=== PATIENT | female | born 1935 | race Caucasian/White ===

== ENCOUNTER 2017-11-14 22:09 | Inpatient (IN) | payer MEDICARE, BC ==
[~2017-11-14 22:09] MED LIST: ISOVUE-370 76%-LOCM 1 ML ONE
[2017-11-14 22:57] LABS: INR-International Normal Ratio 1.1; PTT 33.4 SEC (22.9-36.1); Prothrombin Time 13.8 SEC (12.0-14.7)
[2017-11-14 22:58] LABS: #Eosinphils 0.1 thou/uL (0.0-0.7); #Lymphocytes 1.6 thou/uL (1.20-3.40); #Monocytes 0.9 thou/uL (0.11-0.59); #Neutrophils 10.7 thou/uL (1.40-6.50); %Basophils 0.1 % (0.0-1.0); %Lymphocytes 11.6 % (21.0-51.0); %Neutrophils 80.3 % (42.0-75.0); Hemoglobin 13.1 g/dL (12.0-16.0); Mean Corpuscular HGB CONC 33.3 g/dL (32.0-36.0); Mean Corpuscular Hemoglobin 32.7 pg (27.0-31.0); Mean Corpuscular Volume 98.1 fl (81.0-99.0); Platelet Count 225 thou/uL (130-400); RBC Distribution Width 11.3 % (11.5-14.5); Red Blood Cell (RBC) Count 4.02 mill/uL (4.20-5.40); White Blood Cell (WBC) Count 13.4 thou/uL (4.8-10.8)
[2017-11-14 23:12] LABS: ALT (SGPT) 15 U/L (8-55); AST (SGOT) 15 U/L (5-34); Albumin 3.9 g/dL (3.4-4.8); Alkaline Phosphatase 67 U/L (40-150); Anion Gap 10 mmol/L (10-20); BUN (Urea Nitrogen) 20 mg/dL (9.8-20.1); Bilirubin, Total 0.5 mg/dL (0.2-1.2); Calc. Creatinine Clearance 0 mL/min (70-130); Calcium 9.9 mg/dL (7.8-10.44); Carbon Dioxide 24 mmol/L (23-31); Chloride 106 mmol/L (98-107); Estimated GFR-MDRD 76; Globulin 2.7 g/dL (2.4-3.5); Glucose 101 mg/dL (83-110); Magnesium 1.8 mg/dL (1.6-2.6); Potassium 4.2 mmol/L (3.5-5.1); Protein, Total 6.6 g/dL (6.0-8.3); Sodium 136 mmol/L (136-145)
[2017-11-15] MEDS ORDERED: metroNIDAZOLE 500 MG/100 ML BAG ONE (00:16)
--- NOTE | 2017-11-15 00:16 | CT ---
CT ABDOMEN AND PELVIS WITH IV CONTRAST 11/14/17 HISTORY: Rectal bleeding that started this morning. Intermittent diarrhea for the past one to two weeks. Patie nt reports dizziness and lightheadedness and left sided abdominal pain starting today. Patient takes Eliquis. COMPARISON: None available. FINDINGS: There is mild dependent bibasilar atelectasis. The heart is mildly enlarged. There is a hiatal hernia with the fundus of the stomach above the level of the hemidiaphragms. Calcified granulomata are seen in the liver and spleen. The pancreas, bilateral adrenal glands, kidneys, and urinary bladder demonstrate a normal CT appearan ce. The uterus is either small or surgically absent. The appendix is visualized and normal in caliber. There is a small to moderate amount of retained fecal material seen extending from the cecum to the l evel of the splenic flexure. There is circumferential wall thickening involving the sigmoid colon. There are colonic diverticula a lso seen in this region with pericolonic inflammatory changes. Findings could be related to diverticu litis, but given longer segment of involvement of colonic wall thickening, findings could also be att ributable to colitis related to other infectious or inflammatory etiology. No free intraperitoneal ga s is seen and there is no fluid collection seen to suggest an abscess. There are prominent degenerative changes in the spine with right convexed rotoscoliosis of the thorac olumbar spine. IMPRESSION: 1. Bowel wall thickening involving the sigmoid colon with pericolonic inflammatory changes. Ther e is evidence of colonic diverticulosis and findings are probably attributable to diverticulitis; alt scott, colitis related to either infectious or inflammatory etiology is a consideration. 2. No CT evidence of appendicitis. 3. Hiatal hernia. 4. Moderate amount of retained fecal material in the colon suggesting element of constipation. 5. Followup evaluation is recommended after treatment of presumed diverticulitis/colitis. POS: [facility]
[2017-11-15] MEDS ORDERED: Morphine 5 MG/ML SYRINGE SLOW IVP PRN (02:25)
[2017-11-15] MEDS ORDERED: Sodium Chloride 0.45% 1,000 ML IV SCH (02:30)
[2017-11-15] MEDS ORDERED: Acetaminophen 325 MG TAB PO PRN (05:43)
[2017-11-15] MEDS ORDERED: Milk Of Magnesia 30 ML UDCUP PO PRN (05:43)
[2017-11-15] MEDS ORDERED: Ondansetron HCl/PF 4 MG/2 ML Vial IVP PRN (05:43)
[2017-11-15] MEDS ORDERED: Guaifenesin DM 100-10/5 ML UDCUP PO PRN (05:43)
[2017-11-15] MEDS: Sodium Chloride 0.9% 1,000 ML IV SCH (06:20)
[2017-11-15] MEDS: Thyroid 30 MG TAB PO SCH (06:21)
[2017-11-15] MEDS: metroNIDAZOLE 500 MG in Premix Bag 1 BAG IVPB SCH ×3 (06:21→20:56)
[2017-11-15] MEDS: Acetaminophen 325 MG TAB PO PRN ×3 (06:47→17:53)
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
[2017-11-15] MEDS: Lisinopril 5 MG TAB PO SCH (08:23)
[2017-11-15] MEDS: Docusate 100 MG CAP PO SCH ×2 (08:24→20:51)
[2017-11-15] MEDS: Famotidine 20 MG TAB PO SCH ×2 (08:24→20:51)
[2017-11-15] MEDS ORDERED: Enoxaparin Sodium 40 MG/0.4 ML SYRINGE SC SCH (09:00)
[2017-11-15] MEDS ORDERED: cycloSPORINE 0.05% Ophthalmic Droperette EA EYE SCH (11:30)
[2017-11-15] MEDS: FLUOROMETHOLONE 0.1% FS SCH ×3 (11:46→20:55)
[2017-11-15] MEDS: OPTH FS SCH ×3 (11:46→20:55)
--- NOTE | 2017-11-15 12:31 | PDOC.PN ---
- Subjective Encounter Start Date: 11/15/17 Encounter Start Time: 12:30 Subjective: c/o back pain,eye pain and dryness -: no abd pain,nausea or vomiting - Objective MAR Reviewed: Yes Vital Signs & Weight: Vital Signs (12 hours) Temp Pulse Resp Pulse Ox 11/15/17 10:24 97.7 F 67 16 93 L 11/15/17 08:15 97.9 F 69 16 94 L Result Diagrams: 11/14/17 22:35 11/14/17 22:35 Phys Exam - Physical Examination Constitutional: NAD HEENT: PERRLA, moist MMs, sclera anicteric, oral pharynx no lesions Neck: no nodes, no JVD, supple, full ROM Respiratory: no wheezing, no rales, no rhonchi, clear to auscultation bilateral Cardiovascular: RRR, no significant murmur Gastrointestinal: soft, non-tender, no distention, positive bowel sounds Musculoskeletal: no edema, pulses present Neurological: non-focal, normal sensation, moves all 4 limbs Psychiatric: normal affect, A&O x 3 Skin: no rash Dx/Plan (1) Diverticulitis Code(s): K57.92 - DVTRCLI OF INTEST, PART UNSP, W/O PERF OR ABSCESS W/O BLEED Status: Acute (2) A-fib Code(s): I48.91 - UNSPECIFIED ATRIAL FIBRILLATION Status: Chronic (3) HTN (hypertension) Code(s): I10 - ESSENTIAL (PRIMARY) HYPERTENSION Status: Chronic (4) Chronic anticoagulation Code(s): 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 Clear liquid diet -: restart Eye drops.add tylenol prn -: am labs.IVF -: hemodynamically stable. * . Review of Systems - Review of Systems Constitutional: negative: fever, chills, sweats, weakness, malaise, other Eyes: negative: Pain, Vision Change, Conjunctivae Inflammation, Eyelid Inflammation, Redness, Other ENT: negative: Ear Pain, Ear Discharge, Nose Pain, Nose Discharge, Nose Congestion, Mouth Pain, Mouth Swelling, Throat Pain, Throat Swelling, Other Respiratory: negative: Cough, Dry, Shortness of Breath, Hemoptysis, SOB with Excertion, Pleuritic Pain, Sputum, Wheezing Cardiovascular: negative: chest pain, palpitations, orthopnea, paroxysmal nocturnal dyspnea, edema, light headedness, other Gastrointestinal: negative: Nausea, Vomiting, Abdominal Pain, Diarrhea, Constipation, Melena, Hematochezia, Other Genitourinary: negative: Dysuria, Frequency, Incontinence, Hematuria, Retention , Other Musculoskeletal: negative: Neck Pain, Shoulder Pain, Arm Pain, Back Pain, Hand Pain, Leg Pain, Foot Pain, Other Skin: negative: Rash, Lesions, Mando, Bruising, Other Neurological: negative: Weakness, Numbness, Incoordination, Change in Speech, Confusion, Seizures, Other - Medications/Allergies Allergies/Adverse Reactions: Allergies Allergy/AdvReac Type Severity Reaction Status Date / Time bacitracin Allergy Verified 11/15/17 02:30 [From Neosporin ([id number])] codeine Allergy Verified 11/15/17 02:30 neomycin Allergy Verified 11/15/17 02:30 [From Neosporin ([id number])] Penicillins Allergy Verified 11/15/17 02:30 polymyxin B Allergy Verified 11/15/17 02:30 [From Neosporin ([id number])] simvastatin [From Zocor] Allergy Verified 11/15/17 02:30 Sulfa (Sulfonamide Allergy Verified 11/15/17 02:30 Antibiotics) Medications: Current Medications Acetaminophen (Tylenol) 650 mg PO Q4H PRN PRN Reason: Headache/Fever or Pain Last Admin: 11/15/17 11:26 Dose: 650 mg Acetaminophen (Tylenol) 650 mg PO Q4H PRN PRN Reason: Pain 1-3 Amlodipine Besylate (Norvasc) 10 mg PO [facility] Cyclosporine (Restasis) 0 ml EA EYE BID [facility] Cyclosporine (Restasis) 0 ml EA EYE 1130 [facility] Stop: 11/15/17 13:30 Last Admin: 11/15/17 11:46 Dose: 0.4 ml Docusate Sodium (Colace) 100 mg PO BID [facility] Last Admin: 11/15/17 08:24 Dose: 100 mg Famotidine (Pepcid) 20 mg PO BID [facility] Last Admin: 11/15/17 08:24 Dose: 20 mg Galantamine Hydrobromide (Razadyne) 8 mg PO BID [facility] Last Admin: 11/15/17 08:24 Dose: 8 mg Guaifenesin/Dextromethorphan (Robitussin Dm) 15 ml PO Q4H PRN PRN Reason: Cough Ciprofloxacin/Dextrose 400 mg/ (Device) 200 mls @ 200 mls/hr IVPB Q12HR [facility] Last Admin: 11/15/17 08:25 Dose: 200 mls Metronidazole 500 mg/ Device 100 mls @ 100 mls/hr IVPB Q8HR [facility] Last Admin: 11/15/17 06:21 Dose: 100 mls Sodium Chloride (Normal Saline 0.9%) 1,000 mls @ 50 mls/hr IV .Q20H [facility] Last Admin: 11/15/17 06:20 Dose: 1,000 mls Lisinopril (Zestril) 5 mg PO QAM [facility] Last Admin: 11/15/17 08:23 Dose: 5 mg Magnesium Hydroxide (Milk Of Magnesium) 30 ml PO DAILYPRN PRN PRN Reason: Constipation Morphine Sulfate (Morphine) 2 mg SLOW IVP Q4H PRN PRN Reason: Chest Pain/BP Elevations Fluorometholone (Fml () 0.1 % Opth Drops) 0 each FS BID [facility] Fluorometholone (Fml () 0.1 % Opth Drops) 0 each FS 1130 [facility] Stop: 11/15/17 13:30 Last Admin: 11/15/17 11:46 Dose: 1 each Ondansetron HCl (Zofran) 4 mg IVP Q6H PRN PRN Reason: Nausea/Vomiting Thyroid ([place] Thyroid) 30 mg PO 0600 [facility] Last Admin: 11/15/17 06:21 Dose: 30 mg
[2017-11-15] MEDS: Amlodipine 10 MG TAB PO SCH (20:50)
[2017-11-15] MEDS: cycloSPORINE 0.05% Ophthalmic Droperette EA EYE SCH (20:55)
--- NOTE | 2017-11-15 23:56 | CON ---
DATE OF CONSULTATION: 11/15/2017 REASON FOR CONSULTATION: Rectal bleeding, possible diverticulitis, possible colitis. HISTORY OF PRESENT ILLNESS: Ms. Minor is a pleasant 81-year-old female, who is previously gotten h healthcare at [facility] and then more recently in [facility]. She came to the emergency room yesterday with severe left lower quadrant pain and was admitted with a mild leukocytosis and a CAT sc an showing some inflammation in the sigmoid colon and was felt that she might have diverticular disea se. I talked with her. She has had a history of polyps in the past, maybe her last colonoscopy was about 10 years ago although her daughter thinks it was 5 years ago and [facility] [place] and she did fine with that. She after not have any further colonoscopies due to her advancing age. After some time, she has had problems with her bowels alternating loose and constipated at one point in time, sh ghazal states when she was in her 70s, she had to go to [place] and have what sounds like some biofeedback training for fecal incontinence, which worked pretty well for her, although she lapsed on the exerci ses associated with this when her was dying and really never went back to it. She tends to t kam some antidiarrheals to keep her bowels tight, so that she does not have accidents. She can get u p and get around and do things. In the past couple of weeks, she has been more constipated and was h aving liquid stools. Her daughter thought maybe she had an impaction and liquid stools coming around . Ultimately, she began to have some left lower quadrant pain over the past 3-4 days and she was in the process of moving and her daughter is in the process of moving, she was trying to get through wit hout going to the doctor's office. Ultimately, though it got bad enough that was causing severe pain and then yesterday she passed little bit of blood after a hard bowel movement. She came in to the e mergency room and she was noted to have a mild leukocytosis and a CAT scan showing quite a bit of sto ol in the right colon, paucity of stool in the rectum and sigmoid descending, but thickening circumfe rential pattern in the sigmoid colon consistent with either colitis or diverticulitis. She has been started on antibiotics and is feeling better. She is tolerating liquids at this time. She had no fu rther bleeding since admission. She denies any prior episodes of diverticulitis or colitis. She denies any change in medications or recent antibiotics. PAST MEDICAL AND SURGICAL HISTORY: Severe spinal stenosis, chronic back pain, atrial fibrillation, h istory of [place], reflux, osteoarthritis, hysterectomy, tonsillectomy, hypothyroidism, bladder suspension , cataract surgery, right knee surgery. CURRENT MEDICATIONS: Galantamine extended release twice daily, lisinopril 5 mg daily, [place] Thyroid 30 mg daily, Eliquis 2.5 mg twice daily, Norvasc 10 mg a day, Tylenol p.r.n. Here, she has received some Colace stool softener, Tylenol, Norvasc, Cipro 400 mg q.12 hours, Restasis eyedrops, Colace 100 mg b.i.d., Pepcid 20 mg b.i.d., Razadyne 8 mg b.i.d., Robitussin p.r.n., Zestril 5 mg daily, Flagyl 500 mg q.8 hours, morphine p.r.n., fluorometholone eyedrops and Zofran, normal saline at 50 an hour. ALLERGIES: BACTRIM, CODEINE, NEOMYCIN, PENICILLIN, POLYMYXIN, SIMVASTATIN and SULFA. REVIEW OF SYSTEMS: Negative for dysphagia or odynophagia. Negative for hematemesis or melena. Nega tive for dysuria, frequency, or urgency. She may have a little bit of fever yesterday. SOCIAL HISTORY: She does not smoke, does not drink or use drugs. Her daughter is here at the [facility]. She has been living at some assisted living center here locally. Daughter lives out in the [facility] about an hour away. PHYSICAL EXAMINATION: VITAL SIGNS: Temperature is 97.3, pulse 67, blood pressure 109/56. LUNGS: Clear. HEART: Regular rate and rhythm without clicks or murmurs. ABDOMEN: Scaphoid. She has got some tenderness in left lower quadrant without rebound or guarding. RECTAL: Noted some impaction, no blood. There was yellow stool there. EXTREMITIES: Reveal no clubbing, cyanosis, or edema. SKIN: Atrophic over the shins. She has no overt edema. NEUROLOGIC: She is alert and oriented. Pretty good sense of humor and laughs appropriately, comment s made by her daughter. LABORATORY DATA: White count 6.9 on 10/29/2017, yesterday when she was admitted it was 13.4, hemoglo bin 13.1, platelet count was 225. INR 1.1. Comp met profile was normal. TSH was 0.85 on 10/29/2017 , vitamin B12 is 801. Lipase was 11 on admission. Troponins were negative. IMAGING: CT scan, I have reviewed the actual films. Radiologist felt there was bowel wall thickenin g more in the sigmoid colon, pericolonic inflammatory changes. I agree with these findings likely re lated to diverticulitis. There was a hiatal hernia with fair amount of stomach above the diaphragm, moderate retained fecal matter in the right colon, which I think is fairly significant. ASSESSMENT AND PLAN: 1. Ms. Minor likely has diverticulitis. She did not have quite amount of bleeding or characterist ics of bleeding, and crampy pain and diarrhea that one usually encounters with ischemic colitis. At present, she is on appropriate antibiotics. Keep her on a full liquid diet at this time. She seems to be improved when she came in. We will monitor her labs. If she has further bleeding, we can reev aluate this, but suspect this was either related to the inflammation or possibly even hemorrhoidal as she is quite a bit of hard stools recently. 2. Chronic problems with constipation, probably induced by medicine she takes for fear of fecal inco ntinence. Presently, she has got quite a bit of stool in the right colon. I agree with Colace stool softeners daily. Tomorrow, we will start on little bit of MiraLax as well. She is inclined not to have endoscopy due to her advanced age and other issues and we will definitely try to hold off on jose martin t. I do not see any reason we need to pursue that unless she was not improving or had increased blee ding. We will follow along.
[2017-11-16] MEDS: Acetaminophen 500 MG TAB PO PRN (01:48)
[2017-11-16] MEDS: Sodium Chloride 0.9% 1,000 ML IV SCH ×2 (01:52→20:58)
[2017-11-16] MEDS: metroNIDAZOLE 500 MG in Premix Bag 1 BAG IVPB SCH ×3 (04:07→20:53)
[2017-11-16] MEDS: Thyroid 30 MG TAB PO SCH (04:07)
[2017-11-16 05:13] LABS: #Eosinphils 0.2 thou/uL (0.0-0.7); #Lymphocytes 2.4 thou/uL (1.20-3.40); #Monocytes 0.8 thou/uL (0.11-0.59); #Neutrophils 7.2 thou/uL (1.40-6.50); %Basophils 0.1 % (0.0-1.0); %Eosinophils 2.1 % (0.0-10.0); %Lymphocytes 22.2 % (21.0-51.0); %Monocytes 7.7 % (0.0-10.0); %Neutrophils 67.9 % (42.0-75.0); Hemoglobin 11.6 g/dL (12.0-16.0); Mean Corpuscular HGB CONC 33.3 g/dL (32.0-36.0); Mean Corpuscular Hemoglobin 33.2 pg (27.0-31.0); Mean Corpuscular Volume 99.5 fl (81.0-99.0); Mean Platelet Volume 7.5 fL (7.4-10.4); Platelet Count 196 thou/uL (130-400); RBC Distribution Width 11.4 % (11.5-14.5); White Blood Cell (WBC) Count 10.6 thou/uL (4.8-10.8)
[2017-11-16 05:25] LABS: Anion Gap 11 mmol/L (10-20); BUN (Urea Nitrogen) 10 mg/dL (9.8-20.1); Calc. Creatinine Clearance 71 mL/min (70-130); Calcium 9.3 mg/dL (7.8-10.44); Carbon Dioxide 23 mmol/L (23-31); Chloride 106 mmol/L (98-107); Estimated GFR-MDRD 81; Glucose 100 mg/dL (83-110); Potassium 3.8 mmol/L (3.5-5.1); Sodium 136 mmol/L (136-145)
[2017-11-16] MEDS ORDERED: Polyethylene Glycol 3350 17 GM Packet PO SCH (09:00)
[2017-11-16] MEDS: cycloSPORINE 0.05% Ophthalmic Droperette EA EYE SCH ×2 (09:50→20:45)
[2017-11-16] MEDS: Lisinopril 5 MG TAB PO SCH (09:51)
[2017-11-16] MEDS: Docusate 100 MG CAP PO SCH ×2 (09:52→20:44)
[2017-11-16] MEDS: Famotidine 20 MG TAB PO SCH ×2 (09:52→20:44)
[2017-11-16] MEDS: FLUOROMETHOLONE 0.1% FS SCH ×2 (09:58→20:45)
[2017-11-16] MEDS: OPTH FS SCH ×2 (09:58→20:45)
--- NOTE | 2017-11-16 13:27 | PRG ---
DATE OF SERVICE: 11/16/2017 SUBJECTIVE: Ms. Minor states she has not had a bowel movement today and she feels discomfort in th e upper abdomen with laxatives. She had no fever or chills. She is tolerating a liquid diet. PHYSICAL EXAMINATION: VITAL SIGNS: Temperature 97.4, pulse 83, blood pressure 130/65. GENERAL: She is little bit hard of hearing. She is in no distress, alert and oriented. LUNGS: Clear. HEART: Regular rate and rhythm. ABDOMEN: Soft, mildly tender in the left lower quadrant without rebound or guarding. LABORATORY STUDIES: White count today is 10.6, hemoglobin is 11.6, and platelet count is 196. Basic metabolic profile is normal. ASSESSMENT: 1. Diverticulitis, improving clinically. She is on Cipro and Flagyl. 2. Hypertension, controlled. 3. Chronic issues with constipation, alternating diarrhea and occasional fecal incontinence. The CA T scan showing quite a bit of constipation in the right colon and diverticulitis in the sigmoid. 4. Bleeding on admission, this is resolved. RECOMMENDATIONS: We will increase MiraLax to b.i.d. to help with her constipation.
--- NOTE | 2017-11-16 13:55 | PDOC.PN ---
- Subjective Encounter Start Date: 11/16/17 Encounter Start Time: 13:52 Subjective: feels much better.constipated.no fever/chiils - Objective MAR Reviewed: Yes Vital Signs & Weight: Vital Signs (12 hours) Temp Pulse Resp BP BP Pulse Ox 11/16/17 09:51 83 130/65 11/16/17 08:00 97.4 F L 63 20 95 11/16/17 07:00 97.4 F L 63 20 104/54 L 95 I&O: 11/15/17 11/16/17 11/17/17 06:59 06:59 06:59 Intake Total 3840 480 Balance 3840 480 Result Diagrams: 11/16/17 04:34 11/16/17 04:34 Additional Labs: Microbiology 11/14/17 22:35 Stool - Pending Stool Occult Blood (DRISS) - Final Phys Exam - Physical Examination Constitutional: NAD HEENT: PERRLA, moist MMs, sclera anicteric, oral pharynx no lesions Neck: no nodes, no JVD, supple, full ROM Respiratory: no wheezing, no rales, no rhonchi, clear to auscultation bilateral Cardiovascular: RRR, no significant murmur Gastrointestinal: soft, no distention, positive bowel sounds mild tender to palpation Musculoskeletal: no edema, pulses present Neurological: non-focal, normal sensation, moves all 4 limbs Psychiatric: normal affect, A&O x 3 Skin: no rash Dx/Plan (1) Diverticulitis Code(s): K57.92 - DVTRCLI OF INTEST, PART UNSP, W/O PERF OR ABSCESS W/O BLEED Status: Acute (2) A-fib Code(s): I48.91 - UNSPECIFIED ATRIAL FIBRILLATION Status: Chronic Qualifiers: Atrial fibrillation type: paroxysmal Qualified Code(s): I48.0 - Paroxysmal atrial fibrillation (3) HTN (hypertension) Code(s): I10 - ESSENTIAL (PRIMARY) HYPERTENSION Status: Chronic (4) Chronic anticoagulation Code(s): Z79.01 - [facility] (CURRENT) USE OF ANTICOAGULANTS Status: Chronic Comment: eliquis on hold d/t mild rectal bleed - Plan continue antibiotics, out of bed/ambulate, DVT proph w/SCDs Cont Abx,appreciate GI input.cont laxatives/stool softners -: eliquis on hold.restart if no more bleed & H/H stable -: home meds as below. * . Review of Systems - Review of Systems Constitutional: weakness, malaise. negative: fever, chills, sweats, other ENT: negative: Ear Pain, Ear Discharge, Nose Pain, Nose Discharge, Nose Congestion, Mouth Pain, Mouth Swelling, Throat Pain, Throat Swelling, Other Respiratory: negative: Cough, Dry, Shortness of Breath, Hemoptysis, SOB with Excertion, Pleuritic Pain, Sputum, Wheezing Cardiovascular: negative: chest pain, palpitations, orthopnea, paroxysmal nocturnal dyspnea, edema, light headedness, other Gastrointestinal: negative: Nausea, Vomiting, Abdominal Pain, Diarrhea, Constipation, Melena, Hematochezia, Other Genitourinary: negative: Dysuria, Frequency, Incontinence, Hematuria, Retention , Other Musculoskeletal: negative: Neck Pain, Shoulder Pain, Arm Pain, Back Pain, Hand Pain, Leg Pain, Foot Pain, Other Skin: negative: Rash, Lesions, Mando, Bruising, Other Neurological: negative: Weakness, Numbness, Incoordination, Change in Speech, Confusion, Seizures, Other - Medications/Allergies Allergies/Adverse Reactions: Allergies Allergy/AdvReac Type Severity Reaction Status Date / Time bacitracin Allergy Verified 11/15/17 02:30 [From Neosporin ([id number])] codeine Allergy Verified 11/15/17 02:30 neomycin Allergy Verified 11/15/17 02:30 [From Neosporin ([id number])] Penicillins Allergy Verified 11/15/17 02:30 polymyxin B Allergy Verified 11/15/17 02:30 [From Neosporin ([id number])] simvastatin [From Zocor] Allergy Verified 11/15/17 02:30 Sulfa (Sulfonamide Allergy Verified 11/15/17 02:30 Antibiotics) Medications: Current Medications Acetaminophen (Tylenol) 1,000 mg PO Q4H PRN PRN Reason: Headache/Fever or Pain Last Admin: 11/16/17 01:48 Dose: 1,000 mg Amlodipine Besylate (Norvasc) 10 mg PO HS [facility] Last Admin: 11/15/17 20:50 Dose: 10 mg Cyclosporine (Restasis) 0 ml EA EYE BID [facility] Last Admin: 11/16/17 09:50 Dose: 0.4 ml Docusate Sodium (Colace) 100 mg PO BID [facility] Last Admin: 11/16/17 09:52 Dose: 100 mg Famotidine (Pepcid) 20 mg PO BID [facility] Last Admin: 11/16/17 09:52 Dose: 20 mg Galantamine Hydrobromide (Razadyne) 8 mg PO BID [facility] Last Admin: 11/16/17 09:53 Dose: 8 mg Guaifenesin/Dextromethorphan (Robitussin Dm) 15 ml PO Q4H PRN PRN Reason: Cough Ciprofloxacin/Dextrose 400 mg/ (Device) 200 mls @ 200 mls/hr IVPB Q12HR [facility] Last Admin: 11/16/17 09:16 Dose: 200 mls Metronidazole 500 mg/ Device 100 mls @ 100 mls/hr IVPB Q8HR [facility] Last Admin: 11/16/17 04:07 Dose: 100 mls Sodium Chloride (Normal Saline 0.9%) 1,000 mls @ 50 mls/hr IV .Q20H [facility] Last Admin: 11/16/17 01:52 Dose: 1,000 mls Lisinopril (Zestril) 5 mg PO QAM [facility] Last Admin: 11/16/17 09:51 Dose: 5 mg Magnesium Hydroxide (Milk Of Magnesium) 30 ml PO DAILYPRN PRN PRN Reason: Constipation Morphine Sulfate (Morphine) 2 mg SLOW IVP Q4H PRN PRN Reason: Chest Pain/BP Elevations Last Admin: 11/16/17 04:07 Dose: 2 mg Fluorometholone (Fml () 0.1 % Opth Drops) 0 each FS BID [facility] Last Admin: 11/16/17 09:58 Dose: Not Given Ondansetron HCl (Zofran) 4 mg IVP Q6H PRN PRN Reason: Nausea/Vomiting Polyethylene Glycol (Miralax) 17 gm PO BID [facility] Thyroid ([place] Thyroid) 30 mg PO 0600 [facility] Last Admin: 11/16/17 04:07 Dose: 30 mg
[2017-11-16] MEDS: Amlodipine 10 MG TAB PO SCH (20:41)
[2017-11-16] MEDS: Polyethylene Glycol 3350 17 GM Packet PO SCH (20:46)
[2017-11-16] MEDS: Morphine 5 MG/ML SYRINGE SLOW IVP PRN (23:19)
[2017-11-17] MEDS: Acetaminophen 500 MG TAB PO PRN (00:59)
[2017-11-17 05:44] LABS: Hemoglobin 11.6 g/dL (12.0-16.0)
[2017-11-17] MEDS: Thyroid 30 MG TAB PO SCH (05:44)
[2017-11-17] MEDS: metroNIDAZOLE 500 MG in Premix Bag 1 BAG IVPB SCH ×3 (05:44→21:41)
[2017-11-17] MEDS: Famotidine 20 MG TAB PO SCH ×2 (08:22→20:43)
[2017-11-17] MEDS: Lisinopril 5 MG TAB PO SCH (08:22)
[2017-11-17] MEDS: cycloSPORINE 0.05% Ophthalmic Droperette EA EYE SCH ×2 (08:23→20:56)
[2017-11-17] MEDS: OPTH FS SCH ×2 (08:23→20:44)
[2017-11-17] MEDS: FLUOROMETHOLONE 0.1% FS SCH ×2 (08:23→20:44)
[2017-11-17] MEDS: Polyethylene Glycol 3350 17 GM Packet PO SCH ×2 (08:23→20:55)
[2017-11-17] MEDS: Docusate 100 MG CAP PO SCH (08:23)
--- NOTE | 2017-11-17 13:09 | PDOC.PN ---
- Subjective Encounter Start Date: 11/17/17 Encounter Start Time: 13:08 Subjective: pt very upset about most everything.care discussed & pt reassured -: multiple loose stools after 2 cups of prune juice -: no bleeding per rectum - Objective MAR Reviewed: Yes Vital Signs & Weight: Vital Signs (12 hours) Temp Pulse Resp BP BP Pulse Ox 11/17/17 08:22 60 122/69 11/17/17 08:00 97.8 F 60 16 122/69 96 11/17/17 03:16 98 F 74 18 148/71 H 97 I&O: 11/16/17 11/17/17 11/18/17 06:59 06:59 06:59 Intake Total 3840 3260 Balance 3840 3260 Result Diagrams: 11/17/17 05:13 11/16/17 04:34 Phys Exam - Physical Examination Constitutional: NAD HEENT: PERRLA, moist MMs, sclera anicteric, oral pharynx no lesions Neck: no nodes, no JVD, supple, full ROM Respiratory: no wheezing, no rales, no rhonchi, clear to auscultation bilateral Cardiovascular: RRR, no significant murmur, no rub, gallop Gastrointestinal: soft, non-tender, no distention, positive bowel sounds Musculoskeletal: no edema, pulses present Neurological: non-focal, normal sensation, moves all 4 limbs Psychiatric: A&O x 3 Deviation from normal: agitated and tearful Skin: no rash Dx/Plan (1) Diverticulitis Code(s): K57.92 - DVTRCLI OF INTEST, PART UNSP, W/O PERF OR ABSCESS W/O BLEED Status: Acute (2) A-fib Code(s): I48.91 - UNSPECIFIED ATRIAL FIBRILLATION Status: Chronic Qualifiers: Atrial fibrillation type: paroxysmal Qualified Code(s): I48.0 - Paroxysmal atrial fibrillation (3) HTN (hypertension) Code(s): I10 - ESSENTIAL (PRIMARY) HYPERTENSION Status: Chronic (4) Chronic anticoagulation Code(s): Z79.01 - [facility] (CURRENT) USE OF ANTICOAGULANTS Status: Chronic Comment: eliquis on hold d/t mild rectal bleed - Plan continue antibiotics, PT/OT, out of bed/ambulate, DVT proph w/SCDs cont empiric Abx. avoid further laxatives. GI following. -: Resume eliquis as H/H stable & no further bleed -: hemodynamically stable.likley home soon.arrange HH -: will consult PCT for emotional support.consult [employer] [facility] -: am labs * . Review of Systems - Review of Systems Constitutional: negative: fever, chills, sweats, weakness, malaise, other ENT: negative: Ear Pain, Ear Discharge, Nose Pain, Nose Discharge, Nose Congestion, Mouth Pain, Mouth Swelling, Throat Pain, Throat Swelling, Other Respiratory: negative: Cough, Dry, Shortness of Breath, Hemoptysis, SOB with Excertion, Pleuritic Pain, Sputum, Wheezing Cardiovascular: negative: chest pain, palpitations, orthopnea, paroxysmal nocturnal dyspnea, edema, light headedness, other Gastrointestinal: Diarrhea. negative: Nausea, Vomiting, Abdominal Pain, Constipation, Melena, Hematochezia, Other Genitourinary: negative: Dysuria, Frequency, Incontinence, Hematuria, Retention , Other Musculoskeletal: negative: Neck Pain, Shoulder Pain, Arm Pain, Back Pain, Hand Pain, Leg Pain, Foot Pain, Other Skin: negative: Rash, Lesions, Mando, Bruising, Other Neurological: negative: Weakness, Numbness, Incoordination, Change in Speech, Confusion, Seizures, Other - Medications/Allergies Allergies/Adverse Reactions: Allergies Allergy/AdvReac Type Severity Reaction Status Date / Time bacitracin Allergy Verified 11/15/17 02:30 [From Neosporin ([id number])] codeine Allergy Verified 11/15/17 02:30 neomycin Allergy Verified 11/15/17 02:30 [From Neosporin ([id number])] Penicillins Allergy Verified 11/15/17 02:30 polymyxin B Allergy Verified 11/15/17 02:30 [From Neosporin ([id number])] simvastatin [From Zocor] Allergy Verified 11/15/17 02:30 Sulfa (Sulfonamide Allergy Verified 11/15/17 02:30 Antibiotics) Medications: Current Medications Acetaminophen (Tylenol) 1,000 mg PO Q4H PRN PRN Reason: Headache/Fever or Pain Last Admin: 11/17/17 00:59 Dose: 1,000 mg Amlodipine Besylate (Norvasc) 10 mg PO HS [facility] Last Admin: 11/16/17 20:41 Dose: 10 mg Apixaban (Eliquis) 2.5 mg PO BID [facility] Cyclosporine (Restasis) 0 ml EA EYE BID [facility] Last Admin: 11/17/17 08:23 Dose: 0.4 ml Docusate Sodium (Colace) 100 mg PO BID [facility] Last Admin: 11/17/17 08:23 Dose: Not Given Famotidine (Pepcid) 20 mg PO BID [facility] Last Admin: 11/17/17 08:22 Dose: 20 mg Galantamine Hydrobromide (Razadyne) 8 mg PO BID [facility] Last Admin: 11/17/17 08:22 Dose: 8 mg Guaifenesin/Dextromethorphan (Robitussin Dm) 15 ml PO Q4H PRN PRN Reason: Cough Ciprofloxacin/Dextrose 400 mg/ (Device) 200 mls @ 200 mls/hr IVPB Q12HR [facility] Last Admin: 11/17/17 08:22 Dose: 200 mls Metronidazole 500 mg/ Device 100 mls @ 100 mls/hr IVPB Q8HR [facility] Last Admin: 11/17/17 05:44 Dose: 100 mls Sodium Chloride (Normal Saline 0.9%) 1,000 mls @ 50 mls/hr IV .Q20H [facility] Last Admin: 11/16/17 20:58 Dose: 1,000 mls Lisinopril (Zestril) 5 mg PO QAM [facility] Last Admin: 11/17/17 08:22 Dose: 5 mg Magnesium Hydroxide (Milk Of Magnesium) 30 ml PO DAILYPRN PRN PRN Reason: Constipation Morphine Sulfate (Morphine) 2 mg SLOW IVP Q4H PRN PRN Reason: Chest Pain/BP Elevations Last Admin: 11/16/17 23:19 Dose: 2 mg Fluorometholone (Fml () 0.1 % Opth Drops) 0 each FS BID [facility] Last Admin: 11/17/17 08:23 Dose: 1 each Ondansetron HCl (Zofran) 4 mg IVP Q6H PRN PRN Reason: Nausea/Vomiting Polyethylene Glycol (Miralax) 17 gm PO BID [facility] Last Admin: 11/17/17 08:23 Dose: Not Given Thyroid ([place] Thyroid) 30 mg PO 0600 [facility] Last Admin: 11/17/17 05:44 Dose: 30 mg
[2017-11-17] MEDS: Sodium Chloride 0.9% 1,000 ML IV SCH (14:03)
[2017-11-17] MEDS: Amlodipine 10 MG TAB PO SCH (20:43)
[2017-11-17] MEDS: Apixaban 5 MG TAB PO SCH (20:43)
[2017-11-17] MEDS ORDERED: diphenhydrAMINE 12.5 MG/5 ML UDCUP PO PRN (21:11)
[2017-11-18] MEDS: Morphine 5 MG/ML SYRINGE SLOW IVP PRN (01:06)
[2017-11-18] MEDS: Acetaminophen 500 MG TAB PO PRN (03:39)
[2017-11-18] MEDS: metroNIDAZOLE 500 MG in Premix Bag 1 BAG IVPB SCH (06:27)
[2017-11-18] MEDS: Thyroid 30 MG TAB PO SCH (06:27)
[2017-11-18] MEDS: Apixaban 5 MG TAB PO SCH ×2 (08:04→21:21)
[2017-11-18] MEDS: Famotidine 20 MG TAB PO SCH ×2 (08:05→21:22)
[2017-11-18] MEDS: Lisinopril 5 MG TAB PO SCH (08:06)
[2017-11-18] MEDS: FLUOROMETHOLONE 0.1% FS SCH ×2 (08:07→21:36)
[2017-11-18] MEDS: OPTH FS SCH ×2 (08:07→21:36)
[2017-11-18] MEDS: Polyethylene Glycol 3350 17 GM Packet PO SCH ×2 (08:08→21:36)
[2017-11-18] MEDS: Sodium Chloride 0.9% 1,000 ML IV SCH (08:08)
[2017-11-18 08:52] LABS: #Eosinphils 0.3 thou/uL (0.0-0.7); #Lymphocytes 2.4 thou/uL (1.20-3.40); #Monocytes 0.5 thou/uL (0.11-0.59); #Neutrophils 2.4 thou/uL (1.40-6.50); %Basophils 0.8 % (0.0-1.0); %Eosinophils 4.7 % (0.0-10.0); %Lymphocytes 42.8 % (21.0-51.0); %Monocytes 9.3 % (0.0-10.0); %Neutrophils 42.4 % (42.0-75.0); Hemoglobin 11.7 g/dL (12.0-16.0); Mean Corpuscular HGB CONC 32.8 g/dL (32.0-36.0); Mean Corpuscular Hemoglobin 32.8 pg (27.0-31.0); Mean Platelet Volume 7.1 fL (7.4-10.4); Platelet Count 239 thou/uL (130-400); RBC Distribution Width 11.4 % (11.5-14.5); Red Blood Cell (RBC) Count 3.57 mill/uL (4.20-5.40); White Blood Cell (WBC) Count 5.6 thou/uL (4.8-10.8)
[2017-11-18 09:15] LABS: Anion Gap 10 mmol/L (10-20); BUN (Urea Nitrogen) 6 mg/dL (9.8-20.1); Calc. Creatinine Clearance 69 mL/min (70-130); Calcium 9.6 mg/dL (7.8-10.44); Carbon Dioxide 25 mmol/L (23-31); Chloride 110 mmol/L (98-107); Estimated GFR-MDRD 79; Glucose 88 mg/dL (83-110); Sodium 141 mmol/L (136-145)
[2017-11-18] MEDS: cycloSPORINE 0.05% Ophthalmic Droperette EA EYE SCH ×2 (09:29→21:35)
--- NOTE | 2017-11-18 12:12 | PRG ---
DATE OF SERVICE: 11/18/2017 Ms. Minor is in no pain now. She is having diarrhea. She took 2 bottles of prune juice. PHYSICAL EXAMINATION: VITAL SIGNS: Temperature is 98.3, pulse 64, blood pressure 120/66. ABDOMEN: Mild tender in left lower quadrant. LABORATORY STUDIES: White count 5.6, hemoglobin 11.7, platelet count 239. ASSESSMENT: 1. Diverticulitis, improving. 2. Diarrhea. She has had a history alternating diarrhea and constipation for several years. This s eems to be related to her taking some prune juice. 3. Gastrointestinal bleeding, resolved. Occult blood test negative. RECOMMENDATIONS: 1. Continue present antibiotics. 2. Check a KUB to make sure there has been resolution of the large fecal burden in the right colon t hat was noted at her admission.
--- NOTE | 2017-11-18 14:10 | RAD ---
KUB: History: Constipation. Abdominal pain. FINDINGS: The bowel gas pattern is nonobstructed. There does not appear to be any significant stool present. Sc oliotic change convex to the right, with severe arthritic changes. Vascular calcifications are seen. IMPRESSION: 1. Severe scoliosis and arthritic changes of the spine. 2. Nonobstructed bowel gas pattern. 3. Extensive atherosclerosis. POS: [facility]
[2017-11-18] MEDS: metroNIDAZOLE 500 MG TAB PO SCH ×2 (14:48→21:22)
--- NOTE | 2017-11-18 15:26 | PDOC.PN ---
- Subjective Encounter Start Date: 11/18/17 Encounter Start Time: 08:40 Pt seen for followup re: diverticulitis. Reports constipation. Reports occasional LLQ pain. - Objective MAR Reviewed: Yes Vital Signs & Weight: Vital Signs (12 hours) Temp Pulse Resp BP BP Pulse Ox 11/18/17 08:14 98.3 F 64 14 120/66 98 11/18/17 08:06 64 120/66 11/18/17 08:00 98.3 F 64 14 I&O: 11/17/17 11/18/17 11/19/17 06:59 06:59 06:59 Intake Total 3260 3280 Balance 3260 3280 Result Diagrams: 11/18/17 08:46 11/18/17 08:46 Phys Exam - Physical Examination Constitutional: NAD HEENT: moist MMs Neck: supple Respiratory: clear to auscultation bilateral Cardiovascular: RRR Gastrointestinal: positive bowel sounds Mild LLQ tenderness, no guarding or rigidity Neurological: moves all 4 limbs Psychiatric: normal affect Dx/Plan (1) Diverticulitis Code(s): K57.92 - DVTRCLI OF INTEST, PART UNSP, W/O PERF OR ABSCESS W/O BLEED Status: Acute (2) A-fib Code(s): I48.91 - UNSPECIFIED ATRIAL FIBRILLATION Status: Chronic Qualifiers: Atrial fibrillation type: paroxysmal Qualified Code(s): I48.0 - Paroxysmal atrial fibrillation (3) Chronic anticoagulation Code(s): Z79.01 - [facility] (CURRENT) USE OF ANTICOAGULANTS Status: Chronic Comment: eliquis on hold d/t mild rectal bleed (4) HTN (hypertension) Code(s): I10 - ESSENTIAL (PRIMARY) HYPERTENSION Status: Chronic - Plan continue antibiotics, PT/OT, out of bed/ambulate * . Anticoagulation resumed. Ambulate patient. Review of Systems - Review of Systems Respiratory: negative: Cough, Dry, Shortness of Breath, Hemoptysis, SOB with Excertion, Pleuritic Pain, Sputum, Wheezing Cardiovascular: negative: chest pain, palpitations, orthopnea, paroxysmal nocturnal dyspnea, edema, light headedness Gastrointestinal: Abdominal Pain, Constipation - Medications/Allergies Allergies/Adverse Reactions: Allergies Allergy/AdvReac Type Severity Reaction Status Date / Time bacitracin Allergy Verified 11/15/17 02:30 [From Neosporin ([id number])] codeine Allergy Verified 11/15/17 02:30 neomycin Allergy Verified 11/15/17 02:30 [From Neosporin ([id number])] Penicillins Allergy Verified 11/15/17 02:30 polymyxin B Allergy Verified 11/15/17 02:30 [From Neosporin ([id number])] simvastatin [From Zocor] Allergy Verified 11/15/17 02:30 Sulfa (Sulfonamide Allergy Verified 11/15/17 02:30 Antibiotics) Medications: Current Medications Acetaminophen (Tylenol) 1,000 mg PO Q4H PRN PRN Reason: Headache/Fever or Pain Last Admin: 11/18/17 03:39 Dose: 1,000 mg Amlodipine Besylate (Norvasc) 10 mg PO HS [facility] Last Admin: 11/17/17 20:43 Dose: 10 mg Apixaban (Eliquis) 2.5 mg PO BID [facility] Last Admin: 11/18/17 08:04 Dose: 2.5 mg Ciprofloxacin (Cipro) 250 mg PO BID@0600,2000 [facility] Cyclosporine (Restasis) 0 ml EA EYE BID [facility] Last Admin: 11/18/17 09:29 Dose: 0.4 ml Diphenhydramine HCl (Benadryl) 12.5 mg PO Q4H PRN PRN Reason: Itching & Insomnia Last Admin: 11/17/17 21:41 Dose: 12.5 mg Famotidine (Pepcid) 20 mg PO BID [facility] Last Admin: 11/18/17 08:05 Dose: 20 mg Galantamine Hydrobromide (Razadyne) 8 mg PO BID [facility] Last Admin: 11/18/17 08:06 Dose: 8 mg Guaifenesin/Dextromethorphan (Robitussin Dm) 15 ml PO Q4H PRN PRN Reason: Cough Sodium Chloride (Normal Saline 0.9%) 1,000 mls @ 50 mls/hr IV .Q20H [facility] Last Admin: 11/18/17 08:08 Dose: 1,000 mls Lisinopril (Zestril) 5 mg PO QAM [facility] Last Admin: 11/18/17 08:06 Dose: 5 mg Metronidazole (Flagyl) 500 mg PO TID [facility] Last Admin: 11/18/17 14:48 Dose: 500 mg Morphine Sulfate (Morphine) 2 mg SLOW IVP Q4H PRN PRN Reason: Chest Pain/BP Elevations Last Admin: 11/18/17 01:06 Dose: 2 mg Fluorometholone (Fml () 0.1 % Opth Drops) 0 each FS BID [facility] Last Admin: 11/18/17 08:07 Dose: 1 each Ondansetron HCl (Zofran) 4 mg IVP Q6H PRN PRN Reason: Nausea/Vomiting Polyethylene Glycol (Miralax) 17 gm PO BID [facility] Last Admin: 11/18/17 08:08 Dose: 17 gm Thyroid ([place] Thyroid) 30 mg PO 0600 [facility] Last Admin: 11/18/17 06:27 Dose: 30 mg
--- NOTE | 2017-11-18 20:23 | PRG ---
DATE OF SERVICE: 11/18/2017 SUBJECTIVE: Ms. Minor's diarrhea has resolved. She feels better. She asked me when she can go ho me. She slept well last night. PHYSICAL EXAMINATION: VITAL SIGNS: Temperature 98.3, pulse 64, blood pressure 120/66. ABDOMEN: Soft, mild tender in the left lower quadrant. No rebound or guarding. LABORATORY STUDIES: White count 5.6, hemoglobin 11.7, platelet count 239. Hemoccult was negative. Electrolytes are normal. ASSESSMENT: Diverticulitis. PLAN: 1. Change to p.o. antibiotics. 2. Check KUB to make sure large stool burden in the right colon has resolved. If this is fine, she can go home tomorrow with oral antibiotics and low residue diet for 2 weeks and then resume fiber sup plementation and Citrucel once daily after that.
[2017-11-18] MEDS: Cipro 250 MG TAB PO SCH (21:21)
[2017-11-18] MEDS: Amlodipine 10 MG TAB PO SCH (21:21)
[2017-11-18] MEDS ORDERED: Morphine 2 MG/ML SYRINGE SLOW IVP PRN (23:33)
[2017-11-19 04:25] LABS: #Eosinphils 0.2 thou/uL (0.0-0.7); #Monocytes 0.5 thou/uL (0.11-0.59); #Neutrophils 2.5 thou/uL (1.40-6.50); %Basophils 0.7 % (0.0-1.0); %Eosinophils 4.7 % (0.0-10.0); %Lymphocytes 37.2 % (21.0-51.0); %Monocytes 9.9 % (0.0-10.0); %Neutrophils 47.4 % (42.0-75.0); Hemoglobin 11.2 g/dL (12.0-16.0); Mean Corpuscular Hemoglobin 33.7 pg (27.0-31.0); Mean Platelet Volume 7.6 fL (7.4-10.4); Platelet Count 225 thou/uL (130-400); RBC Distribution Width 11.3 % (11.5-14.5); Red Blood Cell (RBC) Count 3.34 mill/uL (4.20-5.40); White Blood Cell (WBC) Count 5.2 thou/uL (4.8-10.8)
[2017-11-19 04:40] LABS: Anion Gap 10 mmol/L (10-20); BUN (Urea Nitrogen) 10 mg/dL (9.8-20.1); Calc. Creatinine Clearance 71 mL/min (70-130); Calcium 9.6 mg/dL (7.8-10.44); Carbon Dioxide 27 mmol/L (23-31); Chloride 107 mmol/L (98-107); Estimated GFR-MDRD 81; Glucose 97 mg/dL (83-110); Potassium 3.7 mmol/L (3.5-5.1); Sodium 140 mmol/L (136-145)
[2017-11-19] MEDS: Cipro 250 MG TAB PO SCH (05:17)
[2017-11-19] MEDS: Thyroid 30 MG TAB PO SCH (05:17)
[2017-11-19] MEDS: Apixaban 5 MG TAB PO SCH (08:31)
[2017-11-19] MEDS: Famotidine 20 MG TAB PO SCH (08:31)
[2017-11-19] MEDS: Lisinopril 5 MG TAB PO SCH (08:32)
[2017-11-19] MEDS: metroNIDAZOLE 500 MG TAB PO SCH ×2 (08:34→15:00)
[2017-11-19] MEDS: Polyethylene Glycol 3350 17 GM Packet PO SCH (08:34)
[2017-11-19] MEDS: cycloSPORINE 0.05% Ophthalmic Droperette EA EYE SCH (12:49)
--- NOTE | 2017-11-19 14:15 | DIS ---
DATE OF ADMISSION: 11/15/2017 DATE OF DISCHARGE: 11/19/2017 PRIMARY CARE PHYSICIAN: Dr. Shiv Olvera. DISCHARGE DIAGNOSIS: Diverticulitis. CONDITION OF PATIENT ON THE DAY OF DISCHARGE: Stable. I assessed Ms. Minor on the day of discharg e. She denies any chest pain or shortness of breath. She denies any abdominal pain, vomiting, or di arrhea. PHYSICAL EXAMINATION: HEART: S1 and S2 are heard, regular. LUNGS: Clear to auscultation bilaterally. ABDOMEN: She has mild left lower quadrant tenderness, no guarding, or rigidity, bowel sounds are hea rd. DISCHARGE MEDICATIONS: Ciprofloxacin 250 mg 2 times a day for 7 days, metronidazole 500 mg 3 times a day for 7 days, amlodipine 10 mg at bedtime, Eliquis 2.5 mg 2 times a day, Flarex eyedrops 2 times a day, Restasis eyedrops to each eye 2 times a day, [place] Thyroid 30 mg daily, acetaminophen p.r.n., diphenhydramine p.r.n. CONSULTATIONS DURING THIS HOSPITALIZATION: Gastroenterology, Dr. Cook. HOSPITAL COURSE: Ms. Minor is a pleasant 81-year-old lady who was admitted to [facility] on 11/15/[address] scan of the abdomen and pelvis done on 11/14/2017 showed bowel wall thickening involving the sigmoid colon with pericolonic inflammatory changes. The re was also evidence of colonic diverticulosis. There was no CT evidence of appendicitis. She had m oderate amount of retained fecal material in the colon suggesting element of constipation. She was seen by Gastroenterology Service. She was treated with antibiotics. She improved clinically . X-rays of the abdomen on 11/18/2017 showed nonobstructive bowel gas pattern. There was no signifi cant stool present. She is establishing care with Dr. Olvera. She is being discharged home in a stable condition. On the day of discharge, she has a normal Chem-7, normal white count, macrocytic anemia with hemoglob in 11.2 and a normal platelet count. Stool occult blood test during this hospitalization was negativ e. She is advised to follow low residue diet for 2 weeks and then resume fiber supplementation and Citru randal once daily after that. Many thanks for allowing me to participate in your patient's care. Please feel free to contact me wi th any questions or concerns. DISCHARGE DESTINATION: Home. TOTAL AMOUNT OF TIME SPENT COORDINATING THIS DISCHARGE: 33 minutes.
[2017-11-19 15:13] VITALS: BP 128/66; TEMP 97.6
[2017-11-19] MEDS ORDERED: Fluorometholone 0.1% Ophth Soln 5 ml Bottle EA EYE SCH (21:00)
--- NOTE | 2017-11-21 15:13 | EKG ---
Test Reason : Blood Pressure : / mmHG Vent. Rate : 077 BPM Atrial Rate : 077 BPM P-R Int : 146 ms QRS Dur : 142 ms QT Int : 382 ms P-R-T Axes : 027 -42 119 degrees QTc Int : 432 ms Normal sinus rhythm Left axis deviation Left bundle branch block Abnormal ECG Confirmed by BEKAH ROMAN ([id number]), visual effects editor KEENAN DOTSON ([id number]) on 11/21/2017 3:12:51 PM Referred By: Confirmed By:BEKAH ROMAN
== END 2017-11-19 15:11 | disposition home health service (06) | DRG 379 ==
LOC: ERS 22:09 → 2SW 11-15 00:31 → OBSVTOIN 11-15 07:33 → T4-B 11-15 08:52
PROVIDERS: ADMIT Internal Medicine; ATTEND Internal Medicine
DX: K57.31 Diverticulosis of large intestine without perforation or abscess with bleeding (principal); I48.0 Paroxysmal atrial fibrillation; D53.9 Nutritional anemia, unspecified; F03.90 Unspecified dementia, unspecified severity, without behavioral disturbance, psychotic disturbance, mood disturbance, and anxiety; Z79.01 Long term (current) use of anticoagulants; I10 Essential (primary) hypertension; I25.2 Old myocardial infarction; Z87.891 Personal history of nicotine dependence; R19.7 Diarrhea, unspecified; D72.829 Elevated white blood cell count, unspecified; K59.09 Other constipation; E03.9 Hypothyroidism, unspecified; K64.9 Unspecified hemorrhoids
CPT/HCPCS: 36415; 74018; 74177; 80048; 80053; 82274; 82553; 82565; 83690; 83735; 84484; 85014; 85018; 85025; 85610; 85730; 86850; 86900; 86901; 93005; 96365; J2270; J0744; J1650

== ENCOUNTER 2017-11-23 13:08 | Emergency (ER) | payer MEDICARE, BC ==
[2017-11-23] MEDS ORDERED: Ondansetron HCl/PF 4 MG/2 ML Vial ONE (13:59)
[2017-11-23 14:08] LABS: #Basophils 0.1 thou/uL (0.0-0.2); #Eosinphils 0.1 thou/uL (0.0-0.7); #Lymphocytes 1.5 thou/uL (1.20-3.40); #Monocytes 0.4 thou/uL (0.11-0.59); %Basophils 1.3 % (0.0-1.0); %Eosinophils 2.3 % (0.0-10.0); %Lymphocytes 36.8 % (21.0-51.0); %Monocytes 9.9 % (0.0-10.0); %Neutrophils 49.7 % (42.0-75.0); Hemoglobin 13.9 g/dL (12.0-16.0); Mean Corpuscular HGB CONC 32.7 g/dL (32.0-36.0); Mean Corpuscular Hemoglobin 32.5 pg (27.0-31.0); Mean Corpuscular Volume 99.5 fl (81.0-99.0); Platelet Count 287 thou/uL (130-400); RBC Distribution Width 11.5 % (11.5-14.5); Red Blood Cell (RBC) Count 4.26 mill/uL (4.20-5.40)
[2017-11-23 14:37] LABS: ALT (SGPT) 28 U/L (8-55); AST (SGOT) 31 U/L (5-34); Albumin 3.9 g/dL (3.4-4.8); Alkaline Phosphatase 61 U/L (40-150); Anion Gap 12 mmol/L (10-20); BUN (Urea Nitrogen) 8 mg/dL (9.8-20.1); Bilirubin, Total 0.3 mg/dL (0.2-1.2); CK (CPK) 39 U/L (29-168); Calc. Creatinine Clearance 0 mL/min (70-130); Carbon Dioxide 23 mmol/L (23-31); Chloride 107 mmol/L (98-107); Estimated GFR-MDRD 73; Globulin 2.9 g/dL (2.4-3.5); Glucose 90 mg/dL (83-110); Lipase 15 U/L (8-78); Potassium 4.1 mmol/L (3.5-5.1); Protein, Total 6.8 g/dL (6.0-8.3); Sodium 138 mmol/L (136-145)
[2017-11-23] MEDS ORDERED: Acetaminophen 500 MG TAB ONE (15:40)
--- NOTE | 2017-11-23 16:18 | RAD ---
ABDOMEN 1 VIEW: Date: 11/23/17 HISTORY: Nausea, vomiting, and diarrhea. COMPARISON: 11/18/17. FINDINGS: There is moderate scoliosis of the lumbar spine. No dilated loops of large or small bowel. Splenic artery calcifications are present. Evaluation for free air is limited without an upright exam ination. IMPRESSION: No acute abnormality. POS: [facility]
== END 2017-11-23 22:39 ==
LOC: ERS 13:08
DX: R19.7 Diarrhea, unspecified (principal); R11.2 Nausea with vomiting, unspecified; R53.1 Weakness; M19.90 Unspecified osteoarthritis, unspecified site; I25.2 Old myocardial infarction; I48.91 Unspecified atrial fibrillation; K21.9 Gastro-esophageal reflux disease without esophagitis; G62.9 Polyneuropathy, unspecified; F41.9 Anxiety disorder, unspecified; F32.9 Major depressive disorder, single episode, unspecified; Z87.891 Personal history of nicotine dependence; Z79.01 Long term (current) use of anticoagulants; Z79.899 Other long term (current) drug therapy
CPT/HCPCS: 74018; 80053; 82550; 83690; 85025; 96360; 96361; J2405